=== PATIENT | male | born 1935 | race Caucasian/White ===

== ENCOUNTER → 2020-08-06 16:37 | Outpatient (CLI) | payer MEDICARE ==
[2020-08-07 08:13] LABS: PSA - % FREE 28.8 % (()); PSA - FREE 0.23 ng/mL; PSA - TOTAL 0.8 ng/mL (0.0-4.0)
== END | disposition home or self-care (01) ==
LOC: D.LAB 16:37
PROVIDERS: ATTEND Surgery
DX: R19.00 Intra-abdominal and pelvic swelling, mass and lump, unspecified site (principal)